=== PATIENT | female | born 1975 | race African-American/Black ===

== ENCOUNTER 2016-12-30 16:13 | Inpatient (IN) | payer MEDICAID, OTHER ==
[~2016-12-30] VITALS: Ht 165.1 cm; Wt 104.3 kg
[2016-12-30] VITALS (10 sets, daily range): BP systolic 162–229; BP diastolic 71–119; PULSE 76–114; RESP 18–20; TEMP 99.4; O2SAT 94–98
[~2016-12-30 16:13] MED LIST: CIPR750T10 PO; DIPH25 PO; LISI-363 PO; LORCET PO; METO25 PO; NOVO7030P2 SQ; PROC60TA PO; [UNRECOGNIZED DRUG - CODE] PO
[2016-12-30] MEDS ORDERED: METF1000 PO (17:12)
[2016-12-30] MEDS ORDERED: hydrALAZINE HCL 20 MG/ML VIAL IV PUSH ONE (17:15)
[2016-12-30] MEDS ORDERED: AZITHROMYCIN INJ 500 MG in SODIUM CHLOR 0.9% 250 ML INJ 250 ML IV ONE (17:15)
[2016-12-30] MEDS ORDERED: methylPREDNISolone SOD SUCC 125 MG/2 ML VIAL IV PUSH ONE (17:15)
[2016-12-30] MEDS ORDERED: cefTRIAXone INJ 1,000 MG in SODIUM CHLORIDE 0.9% INJ 100 ML IV ONE (17:15)
[2016-12-30] MEDS ORDERED: SODIUM CHLORIDE 0.9% FLUSH 10 ML FLUSH IVF PRN (17:15)
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
[2016-12-30] MEDS: RESP: ALBUTEROL 2.5 MG/IPRATROPIUM 0.5 MG NEB (SCH) INH ×2 (17:30→17:31)
[2016-12-30] MEDS: ONDANSETRON HCL 4 MG/2 ML VIAL IV PUSH PRN (17:39)
--- NOTE | 2016-12-30 17:42 | RADRPT ---
EXAM DATE/TIME: 12/30/2016 17:15 [facility] COMPARISON: No previous studies available for comparison. INDICATIONS : Short of breath, chest pain MEDICAL HISTORY : Hypertension. Diabetes mellitus type II. SURGICAL HISTORY : None. ENCOUNTER: Initial ACUITY: 1 week PAIN SCORE: 10/10 LOCATION: Bilateral chest FINDINGS: A single view of the chest demonstrates the lungs to be symmetrically aerated without evidence of mas s, infiltrate or effusion. The cardiomediastinal contours are unremarkable. Osseous structures are intact. CONCLUSION: No acute disease. Patrick Ochoa MD on December 30, 2016 at 17:40 Board Certified Radiologist. This report was verified electronically.
[2016-12-30 18:12] LABS: AUTOMATED NEUTROPHIL # 6.9 TH/MM3 (1.8-7.7); BASOPHIL # 0.1 TH/MM3 (0-0.2); BASOPHIL % 0.6 % (0.0-2.0); EOSINOPHIL # 0.2 TH/MM3 (0-0.4); EOSINOPHIL % 1.9 % (0.0-4.0); HEMATOCRIT 42.8 % (35.0-46.0); HEMO FLAGS DIFF FINAL; LYMPH % 18.7 % (9.0-44.0); LYMPHOCYTE # 1.8 TH/MM3 (1.0-4.8); MEAN CELL VOLUME 77.9 FL (80.0-100.0); MEAN CORPUSCULAR HEMOGLOBIN 25.1 PG (27.0-34.0); MEAN CORPUSCULAR HGB CONC 32.2 % (32.0-36.0); NEUT % 71.8 % (16.0-70.0); PLATELET COUNT 248 TH/MM3 (150-450); RED BLOOD COUNT 5.49 MIL/MM3 (4.00-5.30); WHITE BLOOD COUNT 9.7 TH/MM3 (4.0-11.0)
[2016-12-30 18:22] LABS: APTT (PATIENT) 25.9 SEC (24.3-30.1); INTERNATIONAL NORMALIZED RATIO 0.9 RATIO; PROTHROMBIN TIME - PATIENT 9.9 SEC (9.8-11.6)
[2016-12-30 18:24] LABS: ANION GAP 5 MEQ/L (5-15); BLOOD UREA NITROGEN 15 MG/DL (7-18); CHLORIDE 100 MEQ/L (98-107); CREATINE KINASE 172 U/L (26-192); GLOMERULAR FILTRATION RATE 73 ML/MIN (>89); MAGNESIUM 1.7 MG/DL (1.5-2.5); SODIUM (NA) 133 MEQ/L (136-145)
[2016-12-30 18:45] LABS: CKMB 2.2 NG/ML (0.5-3.6); POTASSIUM 5.8 MEQ/L (3.5-5.1)
[2016-12-30] MEDS ORDERED: INSULIN HUMAN REGULAR 1,000 UNITS/10 ML VIAL IV PUSH ONE (18:45)
[2016-12-30] MEDS ORDERED: MORPHINE SULFATE 2 MG/ML INJ IV PUSH ONE (18:45)
[2016-12-30] MEDS ORDERED: SODIUM CHLOR 0.9% 1000 ML INJ 1,000 ML IV ONE (18:45)
[2016-12-30] MEDS ORDERED: SODIUM CHLORIDE 0.9% FLUSH 10 ML FLUSH IV FLUSH PRN (19:00)
[2016-12-30] MEDS ORDERED: ACETAMINOPHEN 325 MG TAB PO PRN ×2 (19:00)
[2016-12-30] MEDS ORDERED: NALOXONE HCL 0.4 MG/ML AMP IV PUSH PRN (19:00)
[2016-12-30] MEDS ORDERED: RESP: ALBUTEROL 2.5 MG/IPRATROPIUM 0.5 MG NEB (PRN) NEB (19:00)
[2016-12-30] MEDS ORDERED: cloNIDine HCL 0.2 MG TAB PO ONE (20:00)
[2016-12-30] MEDS ORDERED: SODIUM CHLOR 0.9% 1000 ML INJ 1,000 ML IV SCH (20:00)
[2016-12-30] MEDS: MORPHINE SULFATE 4 MG/ML INJ IV PUSH PRN (20:56)
[2016-12-30] MEDS: SODIUM CHLORIDE 0.9% FLUSH 10 ML FLUSH IV FLUSH SCH (20:56)
[2016-12-30] MEDS: DOCUSATE SODIUM 50 MG/SENNA 8.6 MG TAB PO SCH (20:56)
[2016-12-30] MEDS ORDERED: INSULIN ASPART SUPPLEMENTAL SCALE SQ SCH (21:00)
[2016-12-30] MEDS: LABETALOL HCL 100 MG/20 ML VIAL IV PUSH PRN ×2 (21:52→23:46)
--- NOTE | 2016-12-30 22:05 | HHI.HP ---
[facility] No Primary Care Physician Admission Diagnosis COPD exacerbation, uncontrolled hypertension, uncontrolled diabetes Diagnoses: (1) COPD exacerbation (2) Uncontrolled hypertension (3) Uncontrolled diabetes mellitus (4) Hyperglycemia (5) Hyperkalemia Chief Complaint: Fever, productive cough, headache, bodyaches Travel History International Travel<30 Days: No Contact w/Intl Traveler <30 Da: No Traveled to Known Affected Are: No History of Present Illness Written by Ivy Garcia, acting as scribe for Dr. Cooper on 12/30/16 at 22:04. Chest pain, bad headache, bad cough green yellow and red-streaked sputum, nausea and vomiting any time she tries to eat anything, bodyaches. Duration of symptoms four days. Emesis is green 3 - 4 times per day. Diarrhea is green - non-stop per patient. Abdominal pain in the midepigastric region. Fever 101 at home. Headaches for 3 - 4 days. With neck and eye pain. Reports photosensitivity. Doesn't take BP medications at home. Has not taken any bp meds for 3 years. Takes metformin for diabetes mellitus. Denies dysuria or hematuria. No recent long car or air travel. Left flank pain for 5 years - intermittent. Weight loss 40 lbs over the last year; reports dysphagia. Review of Systems Except as stated in HPI: all other systems reviewed are Neg Past Family Social History Past Medical History Hypertension Diabetes Mellitus on Metformin - recently started taking again - about one month ago COPD - never on home oxygen History of IVDA Brain aneurysm 2001 Denies CAD, CHF, irregular heart rhythms, atrial fibrillation, ALINA, hepatitis, cirrhosis, kidney problems, DVT, PE, CVA, thyroid problems, or cancers . Past Surgical History C-Sections x 3 Cholecystectomy Brain surgery for aneurysm 2001 . Reported Medications Reported Meds & Active Scripts Active Reported Metformin (Metformin HCl) 1,000 Mg Tab 1,000 Mg PO TID . Allergies: Coded Allergies: ANABEL Inhibitors (Verified Allergy, Severe, angioedema, 12/30/16) angioedema hospitalization in 06/2011 from lisinopril use aspirin (Unverified Adverse Reaction, Severe, "BRAIN BLEED:, 12/30/16) Active Ordered Medications Current Medications Sodium Chloride (NS Flush) 2 ml UNSCH PRN IVF FLUSH AFTER USING IV ACCESS; Start 12/30/16 at 17:15 Ceftriaxone Sodium 1000 mg/ Sodium Chloride 100 ml @ 200 mls/hr ONCE ONCE IV Last administered on 12/30/16 17:56; Start 12/30/16 at 17:15; Stop 12/30/16 at 17:44; Status DC Azithromycin 500 mg/Sodium Chloride 250 ml @ 250 mls/hr ONCE ONCE IV Last administered on 12/30/16 19:02; Start 12/30/16 at 17:15; Stop 12/30/16 at 18:14 ; Status DC Ondansetron HCl (Zofran Inj) 4 mg Q6H PRN IV PUSH NAUSEA Last administered on 12/30/16 17:39; Start 12/30/16 at 17:15 Albuterol/ Ipratropium (Duoneb Neb) 1 ampule Q15M INH Last administered on 12/30 17:31; Start 12/30/16 at 17:15; Stop 12/30/16 at 17:46; Status DC Methylprednisolone Sodium Succinate (SoluMEDROL INJ) 125 mg ONCE ONCE IV PUSH Last administered on 12/30/16 17:39; Start 12/30/16 at 17:15; Stop 12/30/16 at 17:16; Status DC Hydralazine HCl (Apresoline Inj) 10 mg ONCE ONCE IV PUSH Last administered on 12/30/16 17:41; Start 12/30/16 at 17:15; Stop 12/30/16 at 17:16; Status DC Sodium Chloride 1,000 ml @ 999 mls/hr BOLUS ONCE IV Last administered on 12/30 18:56; Start 12/30/16 at 18:45; Stop 12/30/16 at 19:52; Status DC Insulin Human Regular (NovoLIN R INJ) 8 units ONCE ONCE IV PUSH Last administered on 12/30/16 18:59; Start 12/30/16 at 18:45; Stop 12/30/16 at 18:46 ; Status DC Morphine Sulfate (Morphine Inj) 2 mg ONCE ONCE IV PUSH Last administered on 19:00; Start 12/30/16 at 18:45; Stop 12/30/16 at 18:46; Status DC Sodium Chloride 1,000 ml @ 100 mls/hr Q10H IV ; Start 12/30/16 at 20:00; Stop 12/30/16 at 20:00; Status DC Sodium Chloride (NS Flush) 2 ml UNSCH PRN IV FLUSH FLUSH AFTER USING IV ACCESS ; Start 12/30/16 at 19:00 Sodium Chloride (NS Flush) 2 ml BID IV FLUSH Last administered on 12/30/16 20: 56; Start 12/30/16 at 21:00 Acetaminophen (Tylenol) 650 mg Q4H PRN PO TEMP > 100.4; Start 12/30/16 at 19:00 Acetaminophen (Tylenol) 650 mg Q6H PRN PO PAIN SCALE 1 TO 2; Start 12/30/16 at 19:00 Morphine Sulfate (Morphine Inj) 2 mg Q4H PRN IV PUSH BREAKTHROUGH PAIN Last administered on 12/30/16 20:56; Start 12/30/16 at 19:00 Oxycodone HCl (Roxicodone) 5 mg Q4H PRN PO PAIN SCALE 3 TO 10; Start 12/30/16 at 19:00 Naloxone HCl (Narcan Inj) 0.4 mg UNSCH PRN IV PUSH SEE LABEL COMMENTS; Start 12/30/16 at 19:00 Senna/Docusate Sodium (Suzie-Colace) 1 tab BID PO Last administered on 20:56; Start 12/30/16 at 21:00 Insulin Aspart (NovoLOG SUPPLEMENTAL SCALE) 1 ACHS SLIDING SCALE SQ Last administered on 12/30/16 20:56; Start 12/30/16 at 21:00 Albuterol/ Ipratropium (Duoneb Neb) 1 ampule Q2HR NEB PRN NEB Wheezing; Start 12/30/16 at 19:00 Clonidine (Catapres) 0.2 mg ONCE ONCE PO Last administered on 12/30/16 20:07 ; Start 12/30/16 at 20:00; Stop 12/30/16 at 20:01; Status DC Hydralazine HCl (Apresoline Inj) 10 mg Q30M PRN IV PUSH bp>160/90; Start at 21:15 Labetalol HCl (Trandate Inj) 10 mg Q20M PRN IV PUSH bp>160/90; Start 12/30/16 at 21:15 Levofloxacin/ Dextrose 150 ml @ 100 mls/hr Q24H IV ; Start 12/31/16 at 09:00 . Family History Does not know what medical conditions her parents had Grandmother had a CVA and DM Brother and children are healthy . Social History Tobacco: smokes 1 PPD Alcohol: denies Illicit Drugs: history of IVDA last used 6 years ago; occasional marijuana . Physical Exam Vital Signs Vital Signs Date Time Temp Pulse Resp B/P (MAP) Pulse Ox O2 Delivery O2 Flow Rate FiO2 12/30/16 21:34 78 18 175/71 (105) 94 Room Air 12/30/16 21:16 88 20 178/93 (121) 96 Room Air 12/30/16 21:05 88 20 193/85 (121) 94 Room Air 12/30/16 20:57 97 20 229/99 (142) 94 Room Air 12/30/16 19:34 114 18 208/100 (136) 97 Room Air 12/30/16 19:11 18 12/30/16 17:36 90 18 207/90 (129) 98 Room Air 215/99 (137) Automatic Cuff 12/30/16 17:36 (129) Room Air 12/30/16 17:36 98 Room Air 12/30/16 16:15 99.4 91 18 209/119 (149) 97 Physical Exam GENERAL: This is an obese female patient, in no apparent distress. SKIN: No rashes. Cool and dry. HEAD: Atraumatic. Normocephalic. No temporal or scalp tenderness. EYES: No scleral icterus. No injection or drainage. ENT: Nose without bleeding, purulent drainage or septal hematoma. Airway patent. NECK: Trachea midline. No JVD. CARDIOVASCULAR: Regular rate and rhythm without murmurs, gallops, or rubs. RESPIRATORY: No rales, or rhonchi. Expiratory wheezing bilaterally. GASTROINTESTINAL: Abdomen soft, non-tender, nondistended. No guarding. MUSCULOSKELETAL: Extremities without clubbing, cyanosis, or edema. No calf tenderness. NEUROLOGICAL: Awake and alert. Motor and sensory grossly within normal limits. Normal speech. . Laboratory Laboratory Tests Test 12/30/16 17:45 White Blood Count 9.7 Red Blood Count 5.49 Hemoglobin 13.8 Hematocrit 42.8 Mean Corpuscular Volume 77.9 Mean Corpuscular Hemoglobin 25.1 Mean Corpuscular Hemoglobin Concent 32.2 Red Cell Distribution Width 18.0 Platelet Count 248 Mean Platelet Volume 9.2 Neutrophils (%) (Auto) 71.8 Lymphocytes (%) (Auto) 18.7 Monocytes (%) (Auto) 7.0 Eosinophils (%) (Auto) 1.9 Basophils (%) (Auto) 0.6 Neutrophils # (Auto) 6.9 Lymphocytes # (Auto) 1.8 Monocytes # (Auto) 0.7 Eosinophils # (Auto) 0.2 Basophils # (Auto) 0.1 CBC Comment DIFF FINAL Differential Comment Prothrombin Time 9.9 Prothromb Time International Ratio 0.9 Activated Partial Thromboplast Time 25.9 Blood Urea Nitrogen 15 Creatinine 1.02 Random Glucose 412 Calcium Level 8.2 Magnesium Level 1.7 Sodium Level 133 Potassium Level 5.8 Chloride Level 100 Carbon Dioxide Level 28.0 Anion Gap 5 Estimat Glomerular Filtration Rate 73 Lactic Acid Level 1.5 Total Creatine Kinase 172 Creatine Kinase MB 2.2 Troponin I 0.02 B-Type Natriuretic Peptide 71 Date/Time Source Procedure Growth Status 12/30/16 17:15 Blood Peripheral Aerobic Blood Culture Pending Received 12/30/16 17:15 Blood Peripheral Anaerobic Blood Culture Pending Received 12/30/16 17:15 Nasal Washing Influenza Types A,B Antigen (LETI) - Final NEGATIVE FOR FLU A AND B ANTIGEN.... Complete Result Diagram: 12/30/16 1745 12/30/16 1745 Imaging Last Impressions Chest X-Ray 12/30/16 1709 Signed Impressions: Service Date/Time: December 17:15 - CONCLUSION: No acute disease. Patrick Ochoa MD . Caprini VTE Risk Assessment Caprini VTE Risk Assessment: Mod/High Risk (score >= 2) Caprini Risk Assessment Model Point Value = 1 Point Value = 2 Point Value = 3 Point Value = 5 Age 41-60 Minor surgery BMI > 25 kg/m2 Swollen legs Varicose veins or History of unexplained or recurrent spontaneous Oral contraceptives or hormone replacement Sepsis (< 1 month) Serious lung disease, including pneumonia (< 1 month) Abnormal pulmonary function Acute myocardial infarction Congestive heart failure (< 1 month) History of inflammatory bowel disease Medical patient at bed rest Age 61-74 Arthroscopic surgery Major open surgery (> 45 min) Laparoscopic surgery (> 45 min) Malignancy Confined to bed (> 72 hours) Immobilizing plaster cast Central venous access Age >= 75 History of VTE Family history of VTE Factor V Leiden Prothrombin [id number] Lupus anticoagulant Anticardiolipin antibodies Elevated serum homocysteine Heparin-induced thrombocytopenia Other congenital or acquired thrombophilia Stroke (< 1 month) Elective arthroplasty Hip, pelvis, or leg fracture Acute spinal cord injury (< 1 month) Prophylaxis Regimen Total Risk Factor Score Risk Level Prophylaxis Regimen 0-1 Low Early ambulation 2 Moderate Order ONE of the following: *Sequential Compression Device (SCD) *Heparin 5000 units SQ BID 3-4 Higher Order ONE of the following medications: *Heparin 5000 units SQ TID *Enoxaparin/Lovenox 40 mg SQ daily (WT < 150 kg, CrCl > 30 mL/min) *Enoxaparin/Lovenox 30 mg SQ daily (WT < 150 kg, CrCl > 10-29 mL/min) *Enoxaparin/Lovenox 30 mg SQ BID (WT < 150 kg, CrCl > 30 mL/min) AND/OR *Sequential Compression Device (SCD) 5 or more Highest Order ONE of the following medications: *Heparin 5000 units SQ TID (Preferred with Epidurals) *Enoxaparin/Lovenox 40 mg SQ daily (WT < 150 kg, CrCl > 30 mL/min) *Enoxaparin/Lovenox 30 mg SQ daily (WT < 150 kg, CrCl > 10-29 mL/min) *Enoxaparin/Lovenox 30 mg SQ BID (WT < 150 kg, CrCl > 30 mL/min) AND *Sequential Compression Device (SCD) Assessment and Plan Problem List: (1) COPD exacerbation ICD Code: J44.1 - Chronic obstructive pulmonary disease with (acute) exacerbation Status: Acute (2) Atypical chest pain ICD Code: R07.89 - Other chest pain (3) Dysphagia ICD Code: R13.10 - Dysphagia, unspecified (4) Weight loss ICD Code: R63.4 - Abnormal weight loss (5) Nausea & vomiting ICD Code: R11.2 - Nausea with vomiting, unspecified (6) Diarrhea ICD Code: R19.7 - Diarrhea, unspecified (7) Hypertensive urgency ICD Code: I16.0 - Hypertensive urgency (8) Uncontrolled diabetes mellitus ICD Code: E11.65 - Type 2 diabetes mellitus with hyperglycemia Status: Acute (9) Hyperglycemia ICD Code: R73.9 - Hyperglycemia, unspecified Status: Acute (10) Hyperkalemia ICD Code: E87.5 - Hyperkalemia Status: Acute (11) Headache ICD Code: R51 - Headache Assessment and Plan 41 y/o female who presented to the ED for evaluation of Fever, productive cough , headaches, and body aches: COPD exacerbation - Breathing treatments - duonebulizers q6h scheduled and q2h prn wheezing - Antibiotics - Levaquin 750 mg IV q24h - Anti-inflammatory: Solumedrol 40 mg IV q6h Chest pain, atypical - check serial troponin I to r/o ACS - suspect chest pain is secondary to pneumonia Diarrhea, N/V, weight loss, dysphagia - consult gastroenterology - appreciate assistance - will check kidney/bladder ultrasound given reports of chronic left flank pain - Zofran 4 mg IV q6h PRN nausea Hypertension - Hydralazine 10 mg IV q30 min for sbp > 160/90, do not give if HR > 100 - Labetalol 10 mg IV q20 min for sbp > 160/90, do not give if HR < 60 - monitor trends in blood pressure readings and adjust treatment accordingly Diabetes Mellitus - hold home Metformin - Accuchecks AC and HS with medium dose SSI coverage - hypoglycemia protocol - monitor trends in blood glucose readings and adjust treatments as indicated - Gabapentin 100 mg TID p.o. for c/o diabetic neuropathy Severe headaches - will check CT head - likely secondary to hypertensive urgency - should improve with better blood pressure control Body aches/pain - Oxycodone p.o. pain 3-10 and Morphine 2 mg IV q4h PRN breakthrough pain - Acetaminophen for pain 1 - 2 PRN DVT prophylaxis - Lovenox 40 mg subq q24h Case management consultation for assistance with discharge planning This note was transcribed by chloe [Ivy Garcia]. I, Dr. Lachelle Cooper personally performed the history, physical exam, and medical decision making; and confirmed the accuracy of the information in the transcribed note. Authenticated by Dr. Lachelle Cooper on 12/30/16 at 22:04. Discussed Condition With ER physician, RN, and patient . Physician Certification 2 Midnight Certification Type: Admission for Inpatient Services Order for Inpatient Services The services are ordered in accordance with Medicare regulations or non- Medicare payer requirements, as applicable. In the case of services not specified as inpatient-only, they are appropriately provided as inpatient services in accordance with the 2-midnight benchmark. Estimated LOS (days): 3 days is the estimated time the patient will need to remain in the hospital, assuming treatment plan goals are met and no additional complications. Post-Hospital Plan: Home Problem Qualifiers (1) Uncontrolled diabetes mellitus: Qualified Codes: E11.65 - Type 2 diabetes mellitus with hyperglycemia Ivy Garcia Dec 30, 2016 22:05 Lachelle Cooper MD Jan 14, 2017 01:44
[2016-12-30] MEDS ORDERED: RESP: IPRATROPIUM 0.5 MG/2.5 ML NEB NEB PRN (22:15)
[2016-12-30] MEDS ORDERED: DEXTROSE 50% IN WATER 50 ML VIAL(D50) IV PUSH PRN (22:15)
[2016-12-30] MEDS ORDERED: GLUCAGON 1 MG/ML VIAL OTHER PRN (22:15)
--- NOTE | 2016-12-30 23:28 | RADRPT ---
EXAM DATE/TIME: 12/30/2016 22:20 [facility] COMPARISON: No previous studies available for comparison. INDICATIONS : Left flank pain. MEDICAL HISTORY : Hypertension. Herniated disc. Asthma. Dyspnea. History of substance abuse. Diabetes. SURGICAL HISTORY : Tubal ligation. section. Cholecystectomy. ENCOUNTER: Initial ACUITY: 1 day PAIN SCORE: 6/10 LOCATION: Bilateral flank MEASUREMENTS: RIGHT KIDNEY: 12.0 x 5.1 x 5.5 cm LEFT KIDNEY: 13.0 x 5.8 x 6.1 cm FINDINGS: RIGHT KIDNEY: Renal cortex is normal in thickness and echotexture. No hydronephrosis, stone, or mass. LEFT KIDNEY: Renal cortex is normal in thickness and echotexture. No hydronephrosis, stone, or mass. BLADDER: Within normal limits given the degree of distension. CONCLUSION: Normal examination. Matthieu Martin Jr., MD on December 30, 2016 at 23:26 Board Certified Radiologist. This report was verified electronically.
[2016-12-30] MEDS: methylPREDNISolone SOD SUCC 40 MG/1 ML VIAL IV PUSH SCH (23:29)
--- NOTE | 2016-12-30 23:44 | RADRPT ---
EXAM DATE/TIME: 12/30/2016 23:30 [facility] COMPARISON: No previous studies available for comparison. INDICATIONS : Cephalgia. RADIATION DOSE: 36.43 CTDIvol (mGy) MEDICAL HISTORY : Hypertension. Aneurysm. Diabetes. SURGICAL HISTORY : Tubal ligation. ENCOUNTER: Initial ACUITY: 3 days PAIN SCALE: 7/10 LOCATION: cranial TECHNIQUE: Multiple contiguous axial images were obtained of the head. Using automated exposure control and adj ustment of the mA and/or kV according to patient size, radiation dose was kept as low as reasonably a chievable to obtain optimal diagnostic quality images. DICOM format image data is available electro nically for review and comparison. FINDINGS: CEREBRUM: The ventricles are normal for age. No evidence of midline shift, mass lesion, hemorrhage or acute in farction. No extra-axial fluid collections are seen. POSTERIOR FOSSA: The cerebellum and brainstem are intact. The 4th ventricle is midline. The cerebellopontine angle i s unremarkable. EXTRACRANIAL: The visualized portion of the orbits is intact. Mucosal thickening without air flow seen throughout t he ethmoid air cells bilaterally. SKULL: The calvaria is intact. No evidence of skull fracture. CONCLUSION: 1. Chronic ethmoid sinus disease. 2. No acute intracranial abnormality. Matthieu Martin Jr., MD on December 30, 2016 at 23:38 Board Certified Radiologist. This report was verified electronically.
[2016-12-31] VITALS (27 sets, daily range): BP systolic 130–180; BP diastolic 74–97; PULSE 66–89; RESP 18–20; TEMP 97.7–98.4; O2SAT 96–100
[2016-12-31 02:06] LABS: BLOOD, URINE NEG (NEG); COMMENT (UR) CULTURE INDICATED; CULTURE IF INDICATED CULTURE INDICATED; GLUCOSE,URINE 1000 mg/dL (NEG); KETONE, URINE NEG (NEG); NITRITE,URINE POS (NEG); PH, URINE 5.5 (5.0-8.5); SQUAMOUS EPITHELIAL CELL URINE 3 /hpf (0-5); URINE COLOR LIGHT-YELLOW (YELLW/STRAW)
[2016-12-31 02:07] LABS: BACTERIA, URINE OCC /hpf
[2016-12-31] MEDS: RESP: IPRATROPIUM 0.5 MG/2.5 ML NEB NEB SCH ×4 (04:22→21:55)
[2016-12-31] MEDS: hydrALAZINE HCL 20 MG/ML VIAL IV PUSH PRN ×2 (05:09→21:17)
[2016-12-31] MEDS: methylPREDNISolone SOD SUCC 40 MG/1 ML VIAL IV PUSH SCH ×4 (05:09→22:31)
[2016-12-31] MEDS: LABETALOL HCL 100 MG/20 ML VIAL IV PUSH PRN (06:30)
--- NOTE | 2016-12-31 07:32 | PD.CONS ---
HPI History of Present Illness This is a 41 year old female who presented to the emergency room for evaluation of fever, headaches, chest pain, productive cough with red-streaked sputum, nausea,vomiting, diarrhea x 4 days. The patient reports she is not doing well and when asked how, she states "I hurt all over, my whole body hurts, my head hurts, my chest hurts, my abdomen hurts!" She reports that she has had abdominal pain x 1 year. At first, she said this was constant, but then reported that it is intermittent. She reports that she has "a strange addiction where I eat the cherries off of cigarettes." She then went on to tell me that this is the red part of a cigarette that is "lit." She reports that she does this with every cigarette when she smokes and smokes 1.5 packs per day. Of note, she also reports that she did K2 joints about a month ago. She has a severe sharp pain in her epigastric area that radiates to the side and mid abdomen. She reports associated nausea and vomiting. She has vomited blood in the past, but has not done so recently. She denies heartburn or reflux. She denies constipation, but reports diarrhea- with 2 loose stools per day, no blood or mucous. She only occasionally takes NSAIDs and does not drink ETOH. She reports that she has lost 40 lbs over the past year, despite eating normally. She denies any early satiety. She has never had PUD and denies ever having an EGD or colonoscopy. (Clara Culp) PFSH Past Medical History Hypertension Diabetes Mellitus COPD History of IVDA Brain aneurysm 2001 Past Surgical History C-Sections x 3 Cholecystectomy Brain surgery for aneurysm 2001 (Clara Culp) Coded Allergies: ANABEL Inhibitors (Verified Allergy, Severe, angioedema, 12/30/16) angioedema hospitalization in 06/2011 from lisinopril use aspirin (Unverified Adverse Reaction, Severe, "BRAIN BLEED:, 12/30/16) Medications Allergies Coded Allergies Type Severity Reaction Last Updated Verified ANABEL Inhibitors Allergy Severe angioedema 12/30/16 Yes aspirin Adverse Reaction Severe "BRAIN BLEED: 12/30/16 No Active Scripts Medications Dose Route/Sig Max Daily Dose Days Date Category Metformin (Metformin HCl) 1,000 Mg Tab 1,000 Mg PO TID 12/30/16 Reported Family History Grandmother had a CVA and DM Social History Smokes 1 1/2 PPD Denies ETOH Hx of IVDA- last used 6 years ago, occasional marijuana. States she smoked K2 joints one month ago. (Clara Culp) Review of Systems Constitutional: COMPLAINS OF: Fatigue, Weight loss, DENIES: Fever, Chills, Change in appetite Respiratory: COMPLAINS OF: Cough, Hemoptysis, Sputum production, Shortness of breath Cardiovascular: COMPLAINS OF: Chest pain Gastrointestinal: COMPLAINS OF: Abdominal pain, Diarrhea, Nausea, Vomiting, Heartburn, Hematemesis, DENIES: Black stools, Bloody stools, Constipation Musculoskeletal: COMPLAINS OF: Joint pain, Muscle aches, Back pain Neurologic: COMPLAINS OF: Headache Psychiatric: COMPLAINS OF: Anxiety, DENIES: Confusion (Clara Culp) GI Exam Vitals I&O Vital Signs Date Time Temp Pulse Resp B/P (MAP) Pulse Ox O2 Delivery O2 Flow Rate FiO2 12/31/16 06:34 173/80 (111) 12/31/16 06:00 86 12/31/16 05:00 70 12/31/16 04:00 66 12/31/16 04:00 169/84 (112) 12/31/16 03:00 97.7 66 20 164/97 (119) 96 12/31/16 03:00 70 12/31/16 02:00 80 12/31/16 01:00 76 12/31/16 01:00 97.9 75 20 157/91 (113) 97 12/31/16 00:11 73 12/30/16 23:46 79 18 188/88 (121) 100 12/30/16 22:42 95 12/30/16 22:19 76 18 162/74 (103) 96 Room Air 12/30/16 21:34 78 18 175/71 (105) 94 Room Air 12/30/16 21:16 88 20 178/93 (121) 96 Room Air 12/30/16 21:05 88 20 193/85 (121) 94 Room Air 12/30/16 20:57 97 20 229/99 (142) 94 Room Air 12/30/16 19:34 114 18 208/100 (136) 97 Room Air 12/30/16 19:11 18 12/30/16 17:36 90 18 207/90 (129) 98 Room Air 215/99 (137) Automatic Cuff 12/30/16 17:36 (129) Room Air 12/30/16 17:36 98 Room Air 12/30/16 16:15 99.4 91 18 209/119 (149) 97 I/O 12/30/16 12/30/16 12/30/16 12/31/16 12/31/16 12/31/16 07:00 15:00 23:00 07:00 15:00 23:00 Intake Total 1350 ml Balance 1350 ml Intake IV Total 1350 ml Imaging Last Impressions Chest X-Ray 12/30/16 1709 Signed Impressions: Service Date/Time: December 17:15 - CONCLUSION: No acute disease. Patrick Ochoa MD Renal Ultrasound 12/30/16 0000 Signed Impressions: Service Date/Time: December 22:20 - CONCLUSION: Normal examination. Matthieu Martin Jr., MD Head CT 12/30/16 0000 Signed Impressions: Service Date/Time: December 23:30 - CONCLUSION: 1. Chronic ethmoid sinus disease. 2. No acute intracranial abnormality. Matthieu Martin Jr., MD Laboratory Test 12/30/16 17:45 12/30/16 23:35 12/31/16 01:30 White Blood Count 9.7 TH/MM3 Red Blood Count 5.49 MIL/MM3 Hemoglobin 13.8 GM/DL Hematocrit 42.8 % Mean Corpuscular Volume 77.9 FL Mean Corpuscular Hemoglobin 25.1 PG Mean Corpuscular Hemoglobin Concent 32.2 % Red Cell Distribution Width 18.0 % Platelet Count 248 TH/MM3 Mean Platelet Volume 9.2 FL Neutrophils (%) (Auto) 71.8 % Lymphocytes (%) (Auto) 18.7 % Monocytes (%) (Auto) 7.0 % Eosinophils (%) (Auto) 1.9 % Basophils (%) (Auto) 0.6 % Neutrophils # (Auto) 6.9 TH/MM3 Lymphocytes # (Auto) 1.8 TH/MM3 Monocytes # (Auto) 0.7 TH/MM3 Eosinophils # (Auto) 0.2 TH/MM3 Basophils # (Auto) 0.1 TH/MM3 CBC Comment DIFF FINAL Differential Comment Prothrombin Time 9.9 SEC Prothromb Time International Ratio 0.9 RATIO Activated Partial Thromboplast Time 25.9 SEC Blood Urea Nitrogen 15 MG/DL Creatinine 1.02 MG/DL Random Glucose 412 MG/DL Calcium Level 8.2 MG/DL Magnesium Level 1.7 MG/DL Sodium Level 133 MEQ/L Potassium Level 5.8 MEQ/L Chloride Level 100 MEQ/L Carbon Dioxide Level 28.0 MEQ/L Anion Gap 5 MEQ/L Estimat Glomerular Filtration Rate 73 ML/MIN Lactic Acid Level 1.5 mmol/L Total Creatine Kinase 172 U/L Creatine Kinase MB 2.2 NG/ML Troponin I 0.02 NG/ML 0.02 NG/ML B-Type Natriuretic Peptide 71 PG/ML Urine Color LIGHT-YELLOW Urine Turbidity CLEAR Urine pH 5.5 Urine Specific [place] 1.036 Urine Protein 30 mg/dL Urine Glucose (UA) 1000 mg/dL Urine Ketones NEG mg/dL Urine Occult Blood NEG Urine Nitrite POS Urine Bilirubin NEG Urine Urobilinogen LESS THAN 2.0 MG/DL Urine Leukocyte Esterase TRACE Urine RBC 1 /hpf Urine WBC 7 /hpf Urine Squamous Epithelial Cells 3 /hpf Urine Bacteria OCC /hpf Microscopic Urinalysis Comment CULTURE INDICATED Date/Time Source Procedure Growth Status 12/30/16 17:15 Blood Peripheral Aerobic Blood Culture Pending Received 12/30/16 17:15 Blood Peripheral Anaerobic Blood Culture Pending Received 12/30/16 17:15 Nasal Washing Influenza Types A,B Antigen (LETI) - Final NEGATIVE FOR FLU A AND B ANTIGEN.... Complete 12/31/16 01:30 Urine Clean Catch Urine Culture Pending Received Physical Examination HEENT: Normocephalic; atraumatic; no jaundice. CHEST: CTA CARDIAC: RRR ABDOMEN: Soft, nondistended,mild epigastric tenderness; no hepatosplenomegaly; bowel sounds are present in all four quadrants. EXTREMITIES: No clubbing, cyanosis, or edema. SKIN: Normal; no rash; no jaundice. HEAD SOFT SUGAR OPERATOR: No focal deficits; alert and oriented times three. (Clara Culp) Assessment and Plan Plan ASSESSMENT: - Abdominal pain, N/V/D, intermittent x 1 year. States she has an addiction to swallowing the lit part of a cigarette and ashes and does this with each cigarette she smokes (1.5 packs per day). She c/o sharp pain with associated nausea/vomiting/diarrhea. She also reports a 40-60 lb weight loss in 1 year. Occasional NSAID use. No ETOH. States she occasionally smokes K2 joints. Never had EGD/Colonoscopy. Absolutely refusing colonoscopy although she wants to have EGD because she feels her stomach is "messed up." She has already ate 100% of her meals today and is not having any difficulty tolerating diet. Recommend CT scan abdomen and pelvis. Recommend EGD/Colonoscopy on Tuesday. However, patient is absolutely refusing the colonoscopy. Stool studies. PPI. - Abn. Wt. Loss 40 -60 lbs unintentionally. Will get CT scan. Refusing colonoscopy. EGD tuesday. - Hx hematemesis, not recently - COPD Exacerbation. nebs, abx per attending. - Hyperkalemia, ERNIE, DM, HTN per attending. PLAN: - JOSELUIS- tolerating diet - PPI - Add Carafate - CT scan abdomen and pelvis - Stool studies - Drug screen - Supportive care - Recommend EGD/Colonoscopy, refusing colonoscopy, but wants EGD done. Has already had 100% of regular trays today. ? Tuesday. - Further recommendations to follow based on results of above - Pt seen and examined by Dr. Martinez and myself and this note is written on her behalf (Clara Culp) Physician Comments seen, examined agree with above (Radha Martinez MD) Clara Culp Dec 31, 2016 07:32 Radha Martinez MD Dec 31, 2016 21:54
[2016-12-31] MEDS: INSULIN ASPART SUPPLEMENTAL SCALE SQ SCH ×4 (08:00→20:48)
[2016-12-31] MEDS ORDERED: INFLUENZA VIRUS VACCINE (QUADRIVALENT) 0.5 ML SYR IM ONE (09:00)
[2016-12-31] MEDS ORDERED: PNEUMOCOCCAL POLYVALENT INJ 25 MCG/0.5 ML SYR IM ONE (09:00)
[2016-12-31] MEDS: DOCUSATE SODIUM 50 MG/SENNA 8.6 MG TAB PO SCH ×2 (09:22→20:42)
[2016-12-31] MEDS: PANTOPRAZOLE SOD 40 MG DELAYED RELEASE TAB PO SCH (09:22)
[2016-12-31] MEDS: GABAPENTIN 100 MG CAP PO SCH ×3 (09:22→16:56)
[2016-12-31] MEDS: MORPHINE SULFATE 4 MG/ML INJ IV PUSH PRN ×3 (09:23→21:16)
[2016-12-31] MEDS: ENOXAPARIN SODIUM 40 MG/0.4 ML SYRINGE SQ SCH (09:23)
[2016-12-31] MEDS: ONDANSETRON HCL 4 MG/2 ML VIAL IV PUSH PRN (09:23)
[2016-12-31] MEDS: LEVOFLOXACIN 750 MG PREMIX INJ 150 ML IV SCH (09:43)
[2016-12-31] MEDS: SODIUM CHLORIDE 0.9% FLUSH 10 ML FLUSH IV FLUSH SCH ×2 (09:46→20:42)
--- NOTE | 2016-12-31 12:26 | EKG ---
Date Performed: 12/30/2016 Time Performed: 16:36:55 PTAGE: 41 years EKG: Sinus rhythm RIGHT ATRIAL ENLARGEMENT LEFT ATRIAL ENLARGEMENT Repolarization abnormality - consider anterior inju ry pattern ABNORMAL ECG PREVIOUS TRACING : 11/24/2014 14.01 Clinical correlation is recommended. DOCTOR: Eliazar Munguia Interpretating Date/Time 12/31/2016 12:24:25
--- NOTE | 2016-12-31 12:26 | EKG ---
Date Performed: 12/30/2016 Time Performed: 23:42:42 PTAGE: 41 years EKG: Sinus rhythm Repolarization abnormality - consider anterior injury pattern PREVIOUS TRACING : 12/30/2016 16.36 Clinical correlation is recommended DOCTOR: Eliazar Munguia Interpretating Date/Time 12/31/2016 12:24:53
--- NOTE | 2016-12-31 14:10 | HHI.PR ---
Subjective Remarks The patient says she has pain in her abdomen. She said the pain is worse with hot foods, but she is able to tolerate hot drinks. Breathing makes the pain worse. She has been coughing up mucus and last week she coughed up some blood. Her family says she eats things like sand and the lee portion of the cigarette. She does not know why she does this. Objective Vitals Vital Signs Date Time Temp Pulse Resp B/P (MAP) Pulse Ox O2 Delivery O2 Flow Rate FiO2 12/31/16 11:00 76 12/31/16 10:00 72 12/31/16 09:28 18 12/31/16 09:20 96 12/31/16 09:18 97.8 86 20 171/88 (115) 98 12/31/16 09:00 72 12/31/16 08:00 70 12/31/16 06:34 173/80 (111) 12/31/16 06:00 86 12/31/16 05:00 70 12/31/16 04:00 66 12/31/16 04:00 169/84 (112) 12/31/16 03:00 97.7 66 20 164/97 (119) 96 12/31/16 03:00 70 12/31/16 02:00 80 12/31/16 01:00 76 12/31/16 01:00 97.9 75 20 157/91 (113) 97 12/31/16 00:11 73 12/30/16 23:46 79 18 188/88 (121) 100 12/30/16 22:42 95 12/30/16 22:19 76 18 162/74 (103) 96 Room Air 12/30/16 21:34 78 18 175/71 (105) 94 Room Air 12/30/16 21:16 88 20 178/93 (121) 96 Room Air 12/30/16 21:05 88 20 193/85 (121) 94 Room Air 12/30/16 20:57 97 20 229/99 (142) 94 Room Air 12/30/16 19:34 114 18 208/100 (136) 97 Room Air 12/30/16 19:11 18 12/30/16 17:36 90 18 207/90 (129) 98 Room Air 215/99 (137) Automatic Cuff 12/30/16 17:36 (129) Room Air 12/30/16 17:36 98 Room Air 12/30/16 16:15 99.4 91 18 209/119 (828) 97 I/O 12/30/16 12/30/16 12/30/16 12/31/16 12/31/16 12/31/16 07:00 15:00 23:00 07:00 15:00 23:00 Intake Total 1350 ml 1000 ml 150 ml Output Total 400 ml Balance 1350 ml 600 ml 150 ml Intake Oral 1000 ml IV Total 1350 ml 150 ml Output Urine Total 400 ml # Bowel Movements 0 Result Diagram: 12/30/16 1745 12/30/16 1745 Imaging Last Impressions Chest X-Ray 12/30/16 1709 Signed Impressions: Service Date/Time: December 17:15 - CONCLUSION: No acute disease. Patrick Ochoa MD Renal Ultrasound 12/30/16 0000 Signed Impressions: Service Date/Time: December 22:20 - CONCLUSION: Normal examination. Matthieu Martin Jr., MD Head CT 12/30/16 0000 Signed Impressions: Service Date/Time: December 23:30 - CONCLUSION: 1. Chronic ethmoid sinus disease. 2. No acute intracranial abnormality. Matthieu Martin Jr., MD Objective Remarks GENERAL: This is an obese female patient who is upset. SKIN: No rashes. Cool and dry. HEAD: Atraumatic. Normocephalic. No temporal or scalp tenderness. EYES: No scleral icterus. No injection or drainage. ENT: Nose without bleeding, purulent drainage or septal hematoma. Airway patent. NECK: Trachea midline. No JVD. CARDIOVASCULAR: Regular rate and rhythm without murmurs, gallops, or rubs. RESPIRATORY: No rales, or rhonchi. Expiratory wheezing bilaterally. GASTROINTESTINAL: Abdomen soft, tender in the epigastric area, nondistended. No guarding. MUSCULOSKELETAL: Extremities without clubbing, cyanosis or edema. NEUROLOGICAL: Awake and alert. Motor and sensory grossly within normal limits. Normal speech. PSYCH: Very anxious. Medications and IVs Current Medications Medications (Trade) Dose Ordered Sig/Eliz Route Start Time Stop Time Status Last Admin (NS Flush) 2 ml UNSCH PRN IV FLUSH 12/30/16 19:00 12/31/16 05:11 (NS Flush) 2 ml BID IV FLUSH 12/30/16 21:00 12/31/16 09:46 (Tylenol) 650 mg Q4H PRN PO 12/30/16 19:00 (Tylenol) 650 mg Q6H PRN PO 12/30/16 19:00 (Morphine Inj) 2 mg Q4H PRN IV PUSH 12/30/16 19:00 12/31/16 09:23 (Roxicodone) 5 mg Q4H PRN PO 12/30/16 19:00 12/31/16 13:19 (Narcan Inj) 0.4 mg UNSCH PRN IV PUSH 12/30/16 19:00 (Suzie-Colace) 1 tab BID PO 12/30/16 21:00 12/31/16 09:22 (Apresoline Inj) 10 mg Q30M PRN IV PUSH 12/30/16 21:15 12/31/16 05:09 (Trandate Inj) 10 mg Q20M PRN IV PUSH 12/30/16 21:15 12/31/16 06:30 Levofloxacin/ Dextrose 150 ml @ 100 mls/hr Q24H IV 12/31/16 09:00 12/31/16 09:43 (D50w (Vial) Inj) 50 ml UNSCH PRN IV PUSH 12/30/16 22:15 (Glucagon Inj) 1 mg UNSCH PRN OTHER 12/30/16 22:15 (NovoLOG SUPPLEMENTAL SCALE) 1 ACHS SLIDING SCALE SQ 12/31/16 08:00 12/31/16 12:00 (SoluMEDROL INJ) 40 mg Q6HR IV PUSH 12/31/16 00:00 12/31/16 13:09 (Protonix) 40 mg DAILY PO 12/31/16 09:00 12/31/16 09:22 (Atrovent Neb) 0.5 mg Q6HR NEB NEB 12/31/16 04:00 12/31/16 09:18 (Atrovent Neb) 0.5 mg Q2HR NEB PRN NEB 12/30/16 22:15 (Lovenox Inj) 40 mg Q24H SQ 12/31/16 09:00 12/31/16 09:23 (Neurontin) 100 mg TID PO 12/31/16 09:00 12/31/16 13:09 (Carafate Liq) 1 gm ACHS PO 12/31/16 17:00 A/P Problem List: (1) COPD exacerbation ICD Code: J44.1 - Chronic obstructive pulmonary disease with (acute) exacerbation Status: Acute (2) Atypical chest pain ICD Code: R07.89 - Other chest pain (3) Dysphagia ICD Code: R13.10 - Dysphagia, unspecified (4) Weight loss ICD Code: R63.4 - Abnormal weight loss (5) Nausea & vomiting ICD Code: R11.2 - Nausea with vomiting, unspecified (6) Diarrhea ICD Code: R19.7 - Diarrhea, unspecified (7) Hypertensive urgency ICD Code: I16.0 - Hypertensive urgency (8) Uncontrolled diabetes mellitus ICD Code: E11.65 - Type 2 diabetes mellitus with hyperglycemia Status: Acute (9) Hyperglycemia ICD Code: R73.9 - Hyperglycemia, unspecified Status: Acute (10) Hyperkalemia ICD Code: E87.5 - Hyperkalemia Status: Acute (11) Headache ICD Code: R51 - Headache Assessment and Plan Abdominal pain/ Diarrhea/ N/V/ Weight loss/ Dysphagia The pt eats sand and lit cigarettes. Concern for PUD. Trops flat x 2. - consult gastroenterology - appreciate assistance. CT abdomen pending. May need an EGD. She refuses colonoscopy. - Zofran 4 mg IV q6h PRN nausea. - PPI. - pain control. COPD exacerbation Continues to complain of shortness of breath. She is a smoker. Has a productive cough. - Breathing treatments - Duonebs q6h scheduled and q2h prn wheezing. - Antibiotics - Levaquin 750 mg IV q24h. - Anti-inflammatory: Solumedrol 40 mg IV q6h. Hypertension Likely exacerbated by pain. - Hydralazine 10 mg IV q30 min for sbp > 160/90, do not give if HR > 100 - Labetalol 10 mg IV q20 min for sbp > 160/90, do not give if HR < 60 - monitor trends in blood pressure readings and adjust treatment accordingly Diabetes Mellitus Poorly controlled. - hold home Metformin - Accuchecks AC and HS with medium dose SSI coverage - hypoglycemia protocol - monitor trends in blood glucose readings and adjust treatments as indicated - Gabapentin 100 mg TID p.o. for c/o diabetic neuropathy DVT prophylaxis - Lovenox 40 mg subq q24h Discharge Planning Awaiting clinical improvement Problem Qualifiers (1) Uncontrolled diabetes mellitus: Qualified Codes: E11.65 - Type 2 diabetes mellitus with hyperglycemia Patrick Ramon DO Dec 31, 2016 14:10
[2016-12-31] MEDS ORDERED: DIATRIZOATE MEGLUM/DIATRIZOATE SOD 9 ML CUP PO ONE (14:30)
[2016-12-31] MEDS: SUCRALFATE 1 GM/10 ML CUP PO SCH ×2 (16:57→20:42)
[2016-12-31] MEDS ORDERED: INSULIN HUMAN REGULAR 1,000 UNITS/10 ML VIAL IV PUSH ONE (22:15)
[2017-01-01] VITALS (26 sets, daily range): BP systolic 141–187; BP diastolic 77–99; PULSE 65–100; RESP 18–20; TEMP 97.8–99.1; O2SAT 96–100
[2017-01-01 00:03] LABS: AUTOMATED NEUTROPHIL # 12.4 TH/MM3 (1.8-7.7); BASOPHIL % 0.1 % (0.0-2.0); HEMATOCRIT 41.8 % (35.0-46.0); HEMO FLAGS DIFF FINAL; LYMPH % 5.9 % (9.0-44.0); LYMPHOCYTE # 0.8 TH/MM3 (1.0-4.8); MEAN CELL VOLUME 77.2 FL (80.0-100.0); MEAN CORPUSCULAR HEMOGLOBIN 24.4 PG (27.0-34.0); MEAN CORPUSCULAR HGB CONC 31.6 % (32.0-36.0); MONO % 6.4 % (0.0-8.0); NEUT % 87.6 % (16.0-70.0); PLATELET COUNT 272 TH/MM3 (150-450); RED BLOOD COUNT 5.42 MIL/MM3 (4.00-5.30); RED CELL DISTRIBUTION WIDTH 18.2 % (11.6-17.2); WHITE BLOOD COUNT 14.1 TH/MM3 (4.0-11.0)
[2017-01-01 00:37] LABS: ALKALINE PHOSPHATASE 130 U/L (45-117); ALT (GPT) 45 U/L (10-53); ANION GAP 11 MEQ/L (5-15); AST (GOT) 27 U/L (15-37); BETA HCG QUANT LESS THAN 1 MIU/ML (0-5); BICARBONATE 21.8 MEQ/L (21.0-32.0); BLOOD UREA NITROGEN 20 MG/DL (7-18); CHLORIDE 105 MEQ/L (98-107); GLOMERULAR FILTRATION RATE 60 ML/MIN (>89); SODIUM (NA) 138 MEQ/L (136-145); TOTAL BILIRUBIN ADULT 0.2 MG/DL (0.2-1.0)
[2017-01-01] MEDS: MORPHINE SULFATE 4 MG/ML INJ IV PUSH PRN ×4 (03:52→20:21)
[2017-01-01] MEDS: RESP: IPRATROPIUM 0.5 MG/2.5 ML NEB NEB SCH ×3 (04:00→20:41)
[2017-01-01] MEDS: methylPREDNISolone SOD SUCC 40 MG/1 ML VIAL IV PUSH SCH ×3 (05:24→20:03)
[2017-01-01] MEDS: INSULIN ASPART SUPPLEMENTAL SCALE SQ SCH ×4 (08:00→20:28)
[2017-01-01] MEDS: DOCUSATE SODIUM 50 MG/SENNA 8.6 MG TAB PO SCH ×2 (09:00→20:05)
[2017-01-01] MEDS: LEVOFLOXACIN 750 MG PREMIX INJ 150 ML IV SCH (09:05)
[2017-01-01] MEDS: SODIUM CHLORIDE 0.9% FLUSH 10 ML FLUSH IV FLUSH SCH ×2 (09:06→20:03)
[2017-01-01] MEDS: SUCRALFATE 1 GM/10 ML CUP PO SCH ×4 (09:08→20:05)
[2017-01-01] MEDS: PANTOPRAZOLE SOD 40 MG DELAYED RELEASE TAB PO SCH (09:09)
[2017-01-01] MEDS: GABAPENTIN 100 MG CAP PO SCH ×3 (09:09→17:59)
[2017-01-01] MEDS: ENOXAPARIN SODIUM 40 MG/0.4 ML SYRINGE SQ SCH (09:10)
[2017-01-01] MEDS ORDERED: DIATRIZOATE MEGLUM/DIATRIZOATE SOD 9 ML CUP PO ONE (10:30)
--- NOTE | 2017-01-01 14:47 | HHI.PR ---
Subjective Remarks The patient's family was in the room with her. She said her pain was better. She says the oxycodone was not working that well. She said she has not gone for the CAT scan yet. Discussed with nursing. Objective Vitals Vital Signs Date Time Temp Pulse Resp B/P (MAP) Pulse Ox O2 Delivery O2 Flow Rate FiO2 01/01/17 14:09 18 01/01/17 14:07 92 01/01/17 13:14 67 01/01/17 12:03 87 01/01/17 11:36 97.9 85 18 161/95 (117) 97 01/01/17 11:02 86 01/01/17 10:34 20 01/01/17 10:00 68 01/01/17 09:00 82 01/01/17 08:00 80 01/01/17 07:20 Room Air 01/01/17 07:00 80 01/01/17 07:00 98.3 81 19 141/82 (101) 98 01/01/17 06:00 65 01/01/17 05:00 68 01/01/17 04:00 80 01/01/17 04:00 98.0 80 18 152/85 (107) 96 01/01/17 04:00 Room Air 01/01/17 03:00 79 01/01/17 02:00 74 01/01/17 01:00 82 01/01/17 00:00 98.1 77 18 153/77 (102) 97 01/01/17 00:00 Room Air 01/01/17 00:00 77 12/31/16 23:00 82 12/31/16 22:00 150/89 (109) 12/31/16 22:00 80 12/31/16 21:55 97 12/31/16 21:00 89 12/31/16 20:00 Room Air 12/31/16 20:00 98.3 88 20 180/93 (122) 97 12/31/16 20:00 88 12/31/16 18:00 74 12/31/16 17:00 74 12/31/16 16:53 98.0 71 20 160/93 (115) 100 12/31/16 16:00 74 12/31/16 15:00 74 I/O 12/31/16 12/31/16 12/31/16 01/01/177/17 10/7/17 07:00 15:00 23:00 07:00 15:00 23:00 Intake Total 1000 ml 150 ml 960 ml 150 ml Output Total 400 ml 1000 ml Balance 600 ml 150 ml -40 ml 150 ml Intake Oral 1000 ml 960 ml IV Total 150 ml 150 ml Output Urine Total 400 ml 1000 ml # Bowel Movements 0 0 Result Diagram: 12/31/16 2353 12/31/16 2353 Imaging Last Impressions Chest X-Ray 12/30/16 1709 Signed Impressions: Service Date/Time: December 17:15 - CONCLUSION: No acute disease. Patrick Ochoa MD Renal Ultrasound 12/30/16 0000 Signed Impressions: Service Date/Time: December 22:20 - CONCLUSION: Normal examination. Matthieu Martin Jr., MD Head CT 12/30/16 0000 Signed Impressions: Service Date/Time: December 23:30 - CONCLUSION: 1. Chronic ethmoid sinus disease. 2. No acute intracranial abnormality. Matthieu Martin Jr., MD Objective Remarks GENERAL: This is an obese female patient in [facility]. SKIN: No rashes. Cool and dry. HEAD: Atraumatic. Normocephalic. No temporal or scalp tenderness. EYES: No scleral icterus. No injection or drainage. ENT: Nose without bleeding, purulent drainage or septal hematoma. Airway patent. NECK: Trachea midline. No JVD. CARDIOVASCULAR: Regular rate and rhythm without murmurs, gallops, or rubs. RESPIRATORY: No rales, or rhonchi. Expiratory wheezing bilaterally. GASTROINTESTINAL: Abdomen soft, tender in the epigastric area, nondistended. No guarding. MUSCULOSKELETAL: Extremities without clubbing, cyanosis or edema. NEUROLOGICAL: Awake and alert. Motor and sensory grossly within normal limits. Normal speech. PSYCH: Anxious. Medications and IVs Current Medications Medications (Trade) Dose Ordered Sig/Eliz Route Start Time Stop Time Status Last Admin (NS Flush) 2 ml UNSCH PRN IV FLUSH 12/30/16 19:00 12/31/16 05:11 (NS Flush) 2 ml BID IV FLUSH 12/30/16 21:00 01/01/17 09:06 (Tylenol) 650 mg Q4H PRN PO 12/30/16 19:00 (Tylenol) 650 mg Q6H PRN PO 12/30/16 19:00 (Morphine Inj) 2 mg Q4H PRN IV PUSH 12/30/16 19:00 01/01/17 14:00 (Roxicodone) 5 mg Q4H PRN PO 12/30/16 19:00 01/01/17 09:09 (Narcan Inj) 0.4 mg UNSCH PRN IV PUSH 12/30/16 19:00 (Suzie-Colace) 1 tab BID PO 12/30/16 21:00 12/31/16 20:42 (Apresoline Inj) 10 mg Q30M PRN IV PUSH 12/30/16 21:15 12/31/16 21:17 (Trandate Inj) 10 mg Q20M PRN IV PUSH 12/30/16 21:15 12/31/16 06:30 Levofloxacin/ Dextrose 150 ml @ 100 mls/hr Q24H IV 12/31/16 09:00 01/01/17 09:05 (D50w (Vial) Inj) 50 ml UNSCH PRN IV PUSH 12/30/16 22:15 (Glucagon Inj) 1 mg UNSCH PRN OTHER 12/30/16 22:15 (NovoLOG SUPPLEMENTAL SCALE) 1 ACHS SLIDING SCALE SQ 12/31/16 08:00 01/01/17 12:54 (SoluMEDROL INJ) 40 mg Q6HR IV PUSH 12/31/16 00:00 01/01/17 12:53 (Protonix) 40 mg DAILY PO 12/31/16 09:00 01/01/17 09:09 (Atrovent Neb) 0.5 mg Q6HR NEB NEB 12/31/16 04:00 01/01/17 08:37 (Atrovent Neb) 0.5 mg Q2HR NEB PRN NEB 12/30/16 22:15 (Lovenox Inj) 40 mg Q24H SQ 12/31/16 09:00 01/01/17 09:10 (Neurontin) 100 mg TID PO 12/31/16 09:00 01/01/17 12:53 (Carafate Liq) 1 gm ACHS PO 12/31/16 17:00 01/01/17 12:53 A/P Problem List: (1) COPD exacerbation ICD Code: J44.1 - Chronic obstructive pulmonary disease with (acute) exacerbation Status: Acute (2) Atypical chest pain ICD Code: R07.89 - Other chest pain (3) Dysphagia ICD Code: R13.10 - Dysphagia, unspecified (4) Weight loss ICD Code: R63.4 - Abnormal weight loss (5) Nausea & vomiting ICD Code: R11.2 - Nausea with vomiting, unspecified (6) Diarrhea ICD Code: R19.7 - Diarrhea, unspecified (7) Hypertensive urgency ICD Code: I16.0 - Hypertensive urgency (8) Uncontrolled diabetes mellitus ICD Code: E11.65 - Type 2 diabetes mellitus with hyperglycemia Status: Acute (9) Hyperglycemia ICD Code: R73.9 - Hyperglycemia, unspecified Status: Acute (10) Hyperkalemia ICD Code: E87.5 - Hyperkalemia Status: Acute (11) Headache ICD Code: R51 - Headache Assessment and Plan Abdominal pain/ Diarrhea/ N/V/ Weight loss/ Dysphagia The pt eats sand and lit cigarettes. Concern for PUD. Trops flat x 2. - consult gastroenterology - appreciate assistance. CT abdomen pending. May need an EGD. She refuses colonoscopy. - Zofran 4 mg IV q6h PRN nausea. - PPI. - pain control. COPD exacerbation Improving. She is a smoker. Has a productive cough. - Breathing treatments - Duonebs q6h scheduled and q2h prn wheezing. - Levaquin 750 mg IV q24h. - Solumedrol being weaned. Hypertension Likely exacerbated by pain. - Hydralazine 10 mg IV q30 min for sbp > 160/90, do not give if HR > 100 - Labetalol 10 mg IV q20 min for sbp > 160/90, do not give if HR < 60 - monitor trends in blood pressure readings and adjust treatment accordingly. Diabetes Mellitus Poorly controlled. - hold home Metformin. - Accuchecks AC and HS with medium dose SSI coverage. - hypoglycemia protocol. - monitor trends in blood glucose readings and adjust treatments as indicated. - Gabapentin 100 mg TID p.o. for c/o diabetic neuropathy. Psych The pt has strange habits like eating sand and lit cigarettes. She also expresses severe anxiety. - psych consult requested. Acute renal insufficiency May be prerenal. - Give IV fluids and monitor. DVT prophylaxis - Lovenox 40 mg subq q24h Discharge Planning Awaiting clinical improvement Problem Qualifiers (1) Uncontrolled diabetes mellitus: Qualified Codes: E11.65 - Type 2 diabetes mellitus with hyperglycemia Patrick Ramon DO Jan 01, 2017 14:47
[2017-01-01] MEDS: SODIUM CHLOR 0.9% 1000 ML INJ 1,000 ML IV SCH (15:00)
[2017-01-01] MEDS ORDERED: IOHEXOL 350 MG/ML 10 ML VIAL (for RAD DIAG) IVCONTRAST ONE (15:12)
--- NOTE | 2017-01-01 15:23 | RADRPT ---
EXAM DATE/TIME: 01/01/2017 14:54 [facility] COMPARISON: No previous studies available for comparison. INDICATIONS : Extreme weight loss of 40-60 pounds; abdomen pain. IV CONTRAST: 75 cc Omnipaque 350 (iohexol) IV ORAL CONTRAST: No oral contrast ingested. RADIATION DOSE: 13.36 CTDIvol (mGy) MEDICAL HISTORY : Hypertension. Chronic obstructive pulmonary disease. IV drug use. SURGICAL HISTORY : Tubal ligation. ENCOUNTER: Initial ACUITY: 1 day PAIN SCALE: 5/10 LOCATION: Bilateral abdomen TECHNIQUE: Volumetric scanning of the abdomen and pelvis was performed. Using automated exposure control and ad justment of the mA and/or kV according to patient size, radiation dose was kept as low as reasonably achievable to obtain optimal diagnostic quality images. DICOM format image data is available electro nically for review and comparison. FINDINGS: LOWER LUNGS: The visualized lower lungs are clear. LIVER: Homogeneous density without lesion. There is no dilation of the biliary tree. Gallbladder surgically absent.. SPLEEN: Normal size without lesion. PANCREAS: Within normal limits. KIDNEYS: Normal in size and shape. There is no mass, stone or hydronephrosis. ADRENAL GLANDS: Within normal limits. VASCULAR: There is no aortic aneurysm. BOWEL/MESENTERY: The stomach, small bowel, and colon demonstrate no acute abnormality. There is no free intraperitone al air or fluid. ABDOMINAL WALL: Tiny fat containing umbilical hernia. RETROPERITONEUM: There is no lymphadenopathy. BLADDER: No wall thickening or mass. REPRODUCTIVE: Within normal limits. INGUINAL: There is no lymphadenopathy or hernia. MUSCULOSKELETAL: Mild bilateral sacroiliitis. CONCLUSION: No acute CT findings in the abdomen or pelvis. Mega Chalres MD on January 01, 2017 at 15:13 Board Certified Radiologist. This report was verified electronically.
--- NOTE | 2017-01-01 18:03 | PD.PSY.CON ---
Provisional Diagnosis Admission Date Dec 30, 2016 at 21:07 [place] I. Cocaine abuse F-14.10, at risk of opiate abuse z91.89 [place] II. Cluster B History of Present Illness Service Psychiatry Consult Requested By Attending [place]. Reason for Consult Assessment Primary Care Physician No Primary Care Physician HPI Patient is a 41-year-old female asked to see because statements patient made about packet type behaviors and eating cigarettes and she. Patient 's EMR was reviewed. She has had multiple visits through this hospital. When checking the urine toxicology his there is a persistent theme noted. Patient has had 5 urine toxicology his for high positive opiates since 2007 is had 3 positive for cocaine value since 2007 for positive benzodiazepine since 2007. I went to see patient with nurse. Going into patient's room there were about 6 older teenage children 5 girls and 1 boy. One of the girls was sitting in the boys lap another the girls was playing on the bed appeared to be her daughter. And she was myself and suggested that the children leave the room slammed him talk privately. The children got up subdivides to them mother and friend, grab some cigarettes and left. The patient then asked the nurse to leave the room. I refused to allow that to happen feeling good did need willingness to verify the situation. Patient stated that she would not talk unless her daughter was back in the room to protect her from strangers. I felt that there was an appropriate patient then said she did not want to talk to me use profanity with me. And I discontinue the session at that point of time. Patient showed no obvious discomfort on the bed she was rolling from one side to another sign leaning up on her right elbow. Her mood was euthymic to somewhat angry irritable and manipulative. I was unable to get any further information from her. Though that appears to be some axis II involved with her behavior. Review of her medications shows a significant amount of opiates being prescribed for this lady. I would suggest judicious approach to the use of opiates considering this lady's EMR record of opiate cocaine and benzodiazepine use. At this time I will remain available on a when necessary basis. As of Tuesday Dr. Parker will be available for reconsultation if the medical service feels that is appropriate Review of Systems ROS Limitations: Uncooperative Past Family Social History Coded Allergies: ANABEL Inhibitors (Verified Allergy, Severe, angioedema, 12/30/16) angioedema hospitalization in 06/2011 from lisinopril use aspirin (Unverified Adverse Reaction, Severe, "BRAIN BLEED:, 12/30/16) Past Medical History Seen MedSurg assessment Reported Medications Metformin (Metformin) 1,000 Mg Tab, 1000 MG PO TID for Blood Sugar Management, # 60 TAB 0 Refills 12/30/16 Current Medications Medications (Trade) Dose Ordered Sig/Eliz Route Start Time Stop Time Status Last Admin (NS Flush) 2 ml UNSCH PRN IV FLUSH 12/30/16 19:00 12/31/16 05:11 (NS Flush) 2 ml BID IV FLUSH 12/30/16 21:00 01/01/17 09:06 (Tylenol) 650 mg Q4H PRN PO 12/30/16 19:00 (Tylenol) 650 mg Q6H PRN PO 12/30/16 19:00 (Morphine Inj) 2 mg Q4H PRN IV PUSH 12/30/16 19:00 01/01/17 14:00 (Narcan Inj) 0.4 mg UNSCH PRN IV PUSH 12/30/16 19:00 (Suzie-Colace) 1 tab BID PO 12/30/16 21:00 12/31/16 20:42 (Apresoline Inj) 10 mg Q30M PRN IV PUSH 12/30/16 21:15 12/31/16 21:17 (Trandate Inj) 10 mg Q20M PRN IV PUSH 12/30/16 21:15 12/31/16 06:30 Levofloxacin/ Dextrose 150 ml @ 100 mls/hr Q24H IV 12/31/16 09:00 01/01/17 09:05 (D50w (Vial) Inj) 50 ml UNSCH PRN IV PUSH 12/30/16 22:15 (Glucagon Inj) 1 mg UNSCH PRN OTHER 12/30/16 22:15 (NovoLOG SUPPLEMENTAL SCALE) 1 ACHS SLIDING SCALE SQ 12/31/16 08:00 01/01/17 12:54 (Protonix) 40 mg DAILY PO 12/31/16 09:00 01/01/17 09:09 (Atrovent Neb) 0.5 mg Q6HR NEB NEB 12/31/16 04:00 01/01/17 08:37 (Atrovent Neb) 0.5 mg Q2HR NEB PRN NEB 12/30/16 22:15 (Lovenox Inj) 40 mg Q24H SQ 12/31/16 09:00 01/01/17 09:10 (Neurontin) 100 mg TID PO 12/31/16 09:00 01/01/17 12:53 (Carafate Liq) 1 gm ACHS PO 12/31/16 17:00 01/01/17 12:53 (SoluMEDROL INJ) 40 mg BID IV PUSH 01/01/17 21:00 (Roxicodone) 10 mg Q4H PRN PO 01/01/17 15:00 Sodium Chloride 1,000 ml @ 100 mls/hr Q10H IV 01/01/17 15:00 01/02/17 10:59 01/01/17 15:00 Family Psych History Unknown due to patient's resistance to speaking with me Social History Unknown due to patient's resistance to speaking with me Patient's Strengths (min. 2) Patient verbal intellectual access healthcare Physical Exam Please see MedSurg patient noted laying in bed no apparent distress her is breathing calmly, laying on her back and then rolling over on her right side without difficulty moving all 4 extremities Vital Signs Vital Signs Date Time Temp Pulse Resp B/P (MAP) Pulse Ox O2 Delivery O2 Flow Rate FiO2 01/01/17 16:11 84 01/01/17 15:45 97.8 18 180/99 (126) 98 01/01/17 07:20 Room Air I/O 01/01/17 01/01/17 01/02/17 08:00 16:00 00:00 Intake Total 960 ml 150 ml Output Total 1000 ml Balance -40 ml 150 ml Lab Results Test 12/31/16 23:53 White Blood Count 14.1 TH/MM3 Red Blood Count 5.42 MIL/MM3 Hemoglobin 13.2 GM/DL Hematocrit 41.8 % Mean Corpuscular Volume 77.2 FL Mean Corpuscular Hemoglobin 24.4 PG Mean Corpuscular Hemoglobin Concent 31.6 % Red Cell Distribution Width 18.2 % Platelet Count 272 TH/MM3 Mean Platelet Volume 8.9 FL Neutrophils (%) (Auto) 87.6 % Lymphocytes (%) (Auto) 5.9 % Monocytes (%) (Auto) 6.4 % Eosinophils (%) (Auto) 0.0 % Basophils (%) (Auto) 0.1 % Neutrophils # (Auto) 12.4 TH/MM3 Lymphocytes # (Auto) 0.8 TH/MM3 Monocytes # (Auto) 0.9 TH/MM3 Eosinophils # (Auto) 0.0 TH/MM3 Basophils # (Auto) 0.0 TH/MM3 CBC Comment DIFF FINAL Differential Comment Blood Urea Nitrogen 20 MG/DL Creatinine 1.21 MG/DL Random Glucose 231 MG/DL Total Protein 6.7 GM/DL Albumin 2.6 GM/DL Calcium Level 8.4 MG/DL Alkaline Phosphatase 130 U/L Aspartate Amino Transf (AST/SGOT) 27 U/L Alanine Aminotransferase (ALT/SGPT) 45 U/L Total Bilirubin 0.2 MG/DL Sodium Level 138 MEQ/L Potassium Level 4.0 MEQ/L Chloride Level 105 MEQ/L Carbon Dioxide Level 21.8 MEQ/L Anion Gap 11 MEQ/L Estimat Glomerular Filtration Rate 60 ML/MIN Troponin I 0.02 NG/ML Human Chorionic Gonadotropin, Quant LESS THAN 1 MIU/ML Date/Time Source Procedure Growth Status 12/30/16 17:15 Blood Peripheral Aerobic Blood Culture - Preliminary NO GROWTH IN 2 DAYS Resulted 12/30/16 17:15 Blood Peripheral Anaerobic Blood Culture - Preliminary NO GROWTH IN 2 DAYS Resulted 12/30/16 17:15 Nasal Washing Influenza Types A,B Antigen (LETI) - Final NEGATIVE FOR FLU A AND B ANTIGEN.... Complete 12/31/16 01:30 Urine Clean Catch Urine Culture - Final 50-100,000 CFU/ML MIXED GRAM POSITIVE... Complete Mental Status Examination Appearance: Appropriate Consciousness: Alert Orientation: Person, Place Motor Activity: Other (patient seen laying in bed but moving all 4 extremities) Speech: Pressured, Rapid Language: Adequate Fund of Knowledge: Poor Attention and Concentration: Other (fair) Memory: Unremarkable Mood: Angry, Oppositional, Irritable Affect: Other (increase range and intensity) Thought Process & Associations: Intact Thought Content: Other (somewhat paranoid) Hallucination Type: None Delusion Type: None Suicidal Ideation: No Suicidal Plan: No Suicidal Intention: No Homicidal Ideation: No Homicidal Plan: No Homicidal Intention: No Insight: Poor Judgment: Poor Mental Status Exam Remarks This examination is quite limited since patient refused to speak with me early on in the session when I refused to allow her 1 daughter to return to the room Assessment & Plan Problem List: (1) At risk for abuse of opiates ICD Codes: Z91.89 - Other specified personal risk factors, not elsewhere classified (2) Cocaine abuse ICD Codes: F14.10 - Cocaine abuse, uncomplicated Assessment & Plan Estimated LOS: days this assessment is somewhat limited the review of the EMR shows possibility of some difficulty with opiates benzodiazepines and cocaine. Recommend judicious use of opiates and benzodiazepines. I will remain on a when necessary basis. Dr. Parker will be back on Tuesday if the treatment team wishes further assessment Discharge Planning To be determined by treatment team Request HC Surrog/Guard Advoc?: No Mega Longoria MD Jan 01, 2017 18:03
[2017-01-01] MEDS ORDERED: HALOPERIDOL 1 MG TAB PO PRN (18:30)
[2017-01-01] MEDS: hydrALAZINE HCL 20 MG/ML VIAL IV PUSH PRN ×2 (20:02→21:28)
[2017-01-02] VITALS (11 sets, daily range): BP systolic 176–195; BP diastolic 77–103; PULSE 70–82; RESP 18–20; TEMP 97.8; O2SAT 98
[2017-01-02] MEDS: SODIUM CHLOR 0.9% 1000 ML INJ 1,000 ML IV SCH (01:00)
[2017-01-02] MEDS: LABETALOL HCL 100 MG/20 ML VIAL IV PUSH PRN ×2 (02:48→03:15)
[2017-01-02] MEDS: MORPHINE SULFATE 4 MG/ML INJ IV PUSH PRN (02:50)
[2017-01-02] MEDS: RESP: IPRATROPIUM 0.5 MG/2.5 ML NEB NEB SCH ×2 (02:54→09:46)
[2017-01-02] MEDS: PANTOPRAZOLE SOD 40 MG DELAYED RELEASE TAB PO SCH (10:09)
[2017-01-02] MEDS: GABAPENTIN 100 MG CAP PO SCH (10:09)
[2017-01-02] MEDS: DOCUSATE SODIUM 50 MG/SENNA 8.6 MG TAB PO SCH (10:09)
[2017-01-02] MEDS: methylPREDNISolone SOD SUCC 40 MG/1 ML VIAL IV PUSH SCH (10:09)
[2017-01-02] MEDS: ENOXAPARIN SODIUM 40 MG/0.4 ML SYRINGE SQ SCH (10:10)
[2017-01-02] MEDS: SODIUM CHLORIDE 0.9% FLUSH 10 ML FLUSH IV FLUSH SCH (10:20)
[2017-01-02] MEDS: LEVOFLOXACIN 750 MG PREMIX INJ 150 ML IV SCH (10:20)
--- NOTE | 2017-01-02 14:57 | HHI.DCPOC ---
Discharge Care Plan Diagnosis: (1) Nausea & vomiting (2) Dysphagia (3) Anxiety Goals to Promote Your Health * To prevent worsening of your condition and complications * To maintain your health at the optimal level Directions to Meet Your Goals Take your medications as prescribed Follow your dietary instruction Follow activity as directed Keep your appointments as scheduled Take your immunizations and boosters as scheduled If your symptoms worsen call your PCP, if no PCP go to Urgent Care Center or Emergency Room Smoking is Dangerous to Your Health. Avoid second hand smoke Call the 24-hour hour crisis hotline for domestic abuse at Patrick Ramon DO Jan 02, 2017 14:57
--- NOTE | 2017-01-02 14:58 | PD.AMA ---
Against Medical Advice Note Diagnosis: (1) Anxiety (2) Nausea & vomiting (3) Dysphagia (4) Diabetes (5) Hypertension Discharge Disposition: Against Medical Advice Pt Condition on Discharge: Stable Recommended Treatment Course Further work-up with GI was recommended, as well as treatment of her uncontrolled diabetes and hypertension. AMA Statement Patient Stefanie Neville has decided to leave the hospital against medical advice. This patient has the capacity to refuse care and understands the risks of leaving, including permanent disability and/or , and has had an opportunity to ask questions about her condition. The patient has been informed that she may return for care at any time, and follow up has been arranged/ advised. Patrick Ramon DO Jan 02, 2017 14:58
--- NOTE | 2017-01-02 15:01 | HHI.DS ---
Discharge Summary Admission Date Dec 30, 2016 at 21:07 Discharge Date: Jan 02, 2017 Admitting Diagnosis COPD exacerbation, uncontrolled hypertension, uncontrolled diabetes (1) COPD exacerbation ICD Code: J44.1 - Chronic obstructive pulmonary disease with (acute) exacerbation Status: Acute (2) Atypical chest pain ICD Code: R07.89 - Other chest pain (3) Dysphagia ICD Code: R13.10 - Dysphagia, unspecified (4) Weight loss ICD Code: R63.4 - Abnormal weight loss (5) Nausea & vomiting ICD Code: R11.2 - Nausea with vomiting, unspecified Diagnosis: Principal (6) Diarrhea ICD Code: R19.7 - Diarrhea, unspecified (7) Hypertensive urgency ICD Code: I16.0 - Hypertensive urgency (8) Uncontrolled diabetes mellitus ICD Code: E11.65 - Type 2 diabetes mellitus with hyperglycemia Status: Acute (9) Hyperglycemia ICD Code: R73.9 - Hyperglycemia, unspecified Status: Acute (10) Hyperkalemia ICD Code: E87.5 - Hyperkalemia Status: Acute (11) Headache ICD Code: R51 - Headache Procedures None Brief History - From Admission Written by Ivy Garcia, acting as scribe for Dr. Cooper on 12/30/16 at 22:04. Chest pain, bad headache, bad cough green yellow and red-streaked sputum, nausea and vomiting any time she tries to eat anything, bodyaches. Duration of symptoms four days. Emesis is green 3 - 4 times per day. Diarrhea is green - non-stop per patient. Abdominal pain in the midepigastric region. Fever 101 at home. Headaches for 3 - 4 days. With neck and eye pain. Reports photosensitivity. Doesn't take BP medications at home. Has not taken any bp meds for 3 years. Takes metformin for diabetes mellitus. Denies dysuria or hematuria. No recent long car or air travel. Left flank pain for 5 years - intermittent. Weight loss 40 lbs over the last year; reports dysphagia. CBC/BMP: 12/31/16 2353 12/31/16 2353 Significant Findings Laboratory Tests Test 12/30/16 17:45 12/30/16 23:35 12/31/16 01:30 12/31/16 23:53 Red Blood Count 5.49 MIL/MM3 (4.00-5.30) 5.42 MIL/MM3 (4.00-5.30) Mean Corpuscular Volume 77.9 FL (80.0-100.0) 77.2 FL (80.0-100.0) Mean Corpuscular Hemoglobin 25.1 PG (27.0-34.0) 24.4 PG (27.0-34.0) Red Cell Distribution Width 18.0 % (11.6-17.2) 18.2 % (11.6-17.2) Neutrophils (%) (Auto) 71.8 % (16.0-70.0) 87.6 % (16.0-70.0) Creatinine 1.02 MG/DL (0.50-1.00) 1.21 MG/DL (0.50-1.00) Random Glucose 412 MG/DL (74-106) 231 MG/DL (74-106) Calcium Level 8.2 MG/DL (8.5-10.1) 8.4 MG/DL (8.5-10.1) Sodium Level 133 MEQ/L (136-145) Potassium Level 5.8 MEQ/L (3.5-5.1) Estimat Glomerular Filtration Rate 73 ML/MIN (>89) 60 ML/MIN (>89) Urine Specific [place] 1.036 (1.002-1.035) Urine Protein 30 mg/dL (NEG-TRACE) Urine Glucose (UA) 1000 mg/dL (NEG) Urine Nitrite POS (NEG) Urine Leukocyte Esterase TRACE (NEG) Urine WBC 7 /hpf (0-5) Urine Bacteria OCC /hpf (NONE) Urine Opiates Screen POS (NEG) Urine Cocaine Screen POS (NEG) White Blood Count 14.1 TH/MM3 (4.0-11.0) Mean Corpuscular Hemoglobin Concent 31.6 % (32.0-36.0) Lymphocytes (%) (Auto) 5.9 % (9.0-44.0) Neutrophils # (Auto) 12.4 TH/MM3 (1.8-7.7) Lymphocytes # (Auto) 0.8 TH/MM3 (1.0-4.8) Blood Urea Nitrogen 20 MG/DL (7-18) Albumin 2.6 GM/DL (3.4-5.0) Alkaline Phosphatase 130 U/L (45-117) Imaging Last Impressions Abdomen/Pelvis CT 01/01/17 0000 Signed Impressions: Service Date/Time: Sunday, January 01, 2017 14:54 - CONCLUSION: No acute CT findings in the abdomen or pelvis. Mega Charles MD Chest X-Ray 12/30/16 1709 Signed Impressions: Service Date/Time: December 17:15 - CONCLUSION: No acute disease. Patrick Ochoa MD Renal Ultrasound 12/30/16 0000 Signed Impressions: Service Date/Time: December 22:20 - CONCLUSION: Normal examination. Matthieu Martin Jr., MD Head CT 12/30/16 0000 Signed Impressions: Service Date/Time: December 23:30 - CONCLUSION: 1. Chronic ethmoid sinus disease. 2. No acute intracranial abnormality. Matthieu Martin Jr., MD PE at Discharge GENERAL: This is an obese female patient in [facility]. SKIN: No rashes. Cool and dry. HEAD: Atraumatic. Normocephalic. No temporal or scalp tenderness. EYES: No scleral icterus. No injection or drainage. ENT: Nose without bleeding, purulent drainage or septal hematoma. Airway patent. NECK: Trachea midline. No JVD. CARDIOVASCULAR: Regular rate and rhythm without murmurs, gallops, or rubs. RESPIRATORY: No rales, or rhonchi. Expiratory wheezing bilaterally. GASTROINTESTINAL: Abdomen soft, tender in the epigastric area, nondistended. No guarding. MUSCULOSKELETAL: Extremities without clubbing, cyanosis or edema. NEUROLOGICAL: Awake and alert. Motor and sensory grossly within normal limits. Normal speech. PSYCH: Anxious. Pt update on day of discharge The patient left the hospital AGAINST MEDICAL ADVICE without being seen by the physician Hospital Course Abdominal pain/ Diarrhea/ N/V/ Weight loss/ Dysphagia The pt eats sand and lit cigarettes. Concern for PUD. Trops flat x 2. - consult gastroenterology - appreciate assistance. CT abdomen pending. May need an EGD. She refuses colonoscopy. - Zofran 4 mg IV q6h PRN nausea. - PPI. - pain control. - the pt left AMA. COPD exacerbation Improving. She is a smoker. Has a productive cough. - Breathing treatments - Duonebs q6h scheduled and q2h prn wheezing. - Levaquin 750 mg IV q24h. - Solumedrol being weaned. - the pt left AMA. Hypertension Likely exacerbated by pain. - Hydralazine 10 mg IV q30 min for sbp > 160/90, do not give if HR > 100 - Labetalol 10 mg IV q20 min for sbp > 160/90, do not give if HR < 60 - monitor trends in blood pressure readings and adjust treatment accordingly. - the pt left AMA. Diabetes Mellitus Poorly controlled. - hold home Metformin. - Accuchecks AC and HS with medium dose SSI coverage. - hypoglycemia protocol. - monitor trends in blood glucose readings and adjust treatments as indicated. - Gabapentin 100 mg TID p.o. for c/o diabetic neuropathy. - the pt left AMA. Psych The pt has strange habits like eating sand and lit cigarettes. She also expresses severe anxiety. - psych consult appreciated. - the pt left AMA. Acute renal insufficiency May be prerenal. - Give IV fluids and monitor. - the pt left AMA. DVT prophylaxis - Lovenox 40 mg subq q24h Pt Condition on Discharge: Stable Discharge Disposition: Discharge Home Discharge Time: <= 30 minutes Discharge Instructions DIET: Follow Instructions for: Heart Healthy Diet Continued Medications: Metformin (Metformin) 1,000 Mg Tab 1000 MG PO TID for Blood Sugar Management, #60 TAB 0 Refills Patrick Ramon DO Jan 02, 2017 15:01
== END 2017-01-02 13:45 | disposition left against medical advice (07) | DRG 638 ==
LOC: NEPE 16:13 → NEDA 18:50 → OBSVTOIN 21:07 → HCIN 12-31
PROVIDERS: ADMIT Hospitalist; ATTEND Hospitalist
DX: E11.65 Type 2 diabetes mellitus with hyperglycemia (principal); J44.1 Chronic obstructive pulmonary disease with (acute) exacerbation; E11.40 Type 2 diabetes mellitus with diabetic neuropathy, unspecified; I10 Essential (primary) hypertension; I16.0 Hypertensive urgency; E87.5 Hyperkalemia; R13.10 Dysphagia, unspecified; R19.7 Diarrhea, unspecified; F17.210 Nicotine dependence, cigarettes, uncomplicated; F41.9 Anxiety disorder, unspecified; F32.9 Major depressive disorder, single episode, unspecified; F12.90 Cannabis use, unspecified, uncomplicated; Z79.84 Long term (current) use of oral hypoglycemic drugs; Z86.14 Personal history of Methicillin resistant Staphylococcus aureus infection; Z88.6 Allergy status to analgesic agent
CPT/HCPCS: 70450; 71010; 74177; 76775; 80048; 80053; 80307; 81001; 82550; 82552; 82948; 83605; 83735; 83880; 84484; 84702; 85025; 85610; 85730; 87040; 87086; 87804; 93005; 94640; 94664; 96365; 96375; J0360; J0456; J0696; J1650; J1815; J1956; J2270; J2405; J2920; J2930; J7030; J7050; J7644; Q9963; Q9967